=== PATIENT | male | born 1985 | race Two or more races ===

== ENCOUNTER 2023-04-03 13:52 | Inpatient (IN) | payer MEDICAID ==
[~2023-04-03] VITALS: Ht 172.7 cm; Wt 111.5 kg
[2023-04-03 15:17] LABS: Basophils # (auto) 0.1 10 ^3/uL (0-0.2); Basophils % (auto) 0.7 % (0.0-2.0); Eosinophils # (auto) 0.4 10 ^3/uL (0-0.8); Eosinophils % (auto) 5.2 % (0.0-7.0); Hematocrit 29.4 % (41.0-53.0); Hemoglobin 9.5 g/dL (13.5-17.5); Lymphocytes # (auto) 1.1 10 ^3/uL (0.4-5.4); Lymphocytes % (auto) 13.5 % (10.0-50.0); Mean Corpuscular Hemoglobin 29.6 pg (28.0-32.0); Mean Corpuscular Hgb Conc. 32.2 g/dL (32.0-36.0); Monocytes # (auto) 0.4 10 ^3/uL (0-1.3); Neutrophils # (auto) 5.9 10 ^3/uL (1.6-8.6); Neutrophils % (auto) 75.6 % (37.0-80.0); Nucleated Red Blood Cells % 0.1 %; Red Cell Distribution Width 15.9 % (11.8-14.3); White Blood Cell 7.8 10^3/uL (4.4-10.8)
[2023-04-03 15:34] LABS: Alanine Aminotransferase 19 U/L (7-40); Albumin 3.8 g/dL (3.2-4.8); Alkaline Phosphatase 98 U/L (46-116); Anion Gap 9 (5-15); Aspartate Aminotransferase 14 U/L (13-40); BUN/Creatinine Ratio 3.7 (10.0-20.0); Bilirubin, Total 0.3 mg/dL (0.2-1.0); Blood Urea Nitrogen 36 mg/dL (9-23); Calcium 9.3 mg/dL (8.5-10.1); Carbon Dioxide 29 mmol/L (20-30); Chloride 101 mmol/L (98-107); Glucose 77 mg/dL (74-106); Potassium 4.5 mmol/L (3.5-5.1); Sodium 139 mmol/L (136-145)
[2023-04-03 15:35] LABS: Total Protein 7.9 g/dL (5.7-8.2)
[2023-04-03 15:43] LABS: CRP High Sensitivity 13.77 mg/dL (<1.0)
[2023-04-03 16:29] LABS: Erythrocyte Sedimentation Rate 110 mm/hr (0-20)
[2023-04-03] MEDS ORDERED: FUROSEMIDE 40 MG/4 ML VIAL IV ONE (16:45)
[2023-04-03] MEDS ORDERED: VANCOMYCIN PER PHARMACY 0 MG IV SCH (17:45)
[2023-04-03] MEDS ORDERED: PIPERACILLIN-TAZOB 3.375GM 100 ML IV ONE (17:45)
[2023-04-03] MEDS ORDERED: VANCOMYCIN 1GM/200ML 200 ML IV ONE (19:00)
[2023-04-03] MEDS ORDERED: ACETAMINOPHEN 325 MG TAB PO PRN (19:15)
[2023-04-03] MEDS ORDERED: ONDANSETRON HCL 4 MG/2 ML VIAL IV PRN (19:15)
[2023-04-03] MEDS ORDERED: DOCUSATE SOD 100 MG CAP PO PRN (19:15)
[2023-04-03] MEDS ORDERED: MORPHINE SULFATE INJ 2 MG/ml SYRG IV PRN (19:15)
[2023-04-03] MEDS ORDERED: NITROGLYCERIN 0.4 MG SL TAB SL PRN (19:15)
[2023-04-03] MEDS ORDERED: CARV25TA55 PO (19:18)
[2023-04-03] MEDS ORDERED: CINA30TA14 PO (19:18)
[2023-04-03] MEDS ORDERED: SEVE800T20 PO (19:18)
[2023-04-03] MEDS ORDERED: NIFE1TAB30 PO (19:18)
[2023-04-03] MEDS: SEVELAMER 800 MG TAB PO SCH (21:23)
[2023-04-03] MEDS: cefTRIAXone 1GM/50ML D5W 50 ML IV SCH (21:23)
[2023-04-03] MEDS ORDERED: HEPARIN SODIUM (PORCINE) 5000 UNITS/ML 1ML VIAL SC SCH (22:00)
[2023-04-03] MEDS: NIFEdipine ER 30 MG TAB PO SCH (22:37)
[2023-04-03] MEDS: HEPARIN SODIUM (PORCINE) 5000 UNITS/ML 1ML VIAL SC SCH (22:38)
[2023-04-03] MEDS: CARVEDILOL 12.5 MG TAB PO SCH (22:40)
[2023-04-04 01:00] VITALS: PULSE 82; RESP 19; O2SAT 95
[2023-04-04] MEDS: FUROSEMIDE 20 MG/2 ML VIAL IV SCH ×2 (06:00→18:30)
[2023-04-04 06:24] LABS: Basophils # (auto) 0.1 10 ^3/uL (0-0.2); Basophils % (auto) 0.9 % (0.0-2.0); Eosinophils # (auto) 0.3 10 ^3/uL (0-0.8); Eosinophils % (auto) 3.7 % (0.0-7.0); Hematocrit 27.6 % (41.0-53.0); Lymphocytes # (auto) 0.8 10 ^3/uL (0.4-5.4); Lymphocytes % (auto) 10.6 % (10.0-50.0); Mean Corpuscular Hgb Conc. 32.5 g/dL (32.0-36.0); Mean Corpuscular Volume 92.3 fL (80.0-100.0); Monocytes # (auto) 0.5 10 ^3/uL (0-1.3); Monocytes % (auto) 6.1 % (0.0-12.0); Neutrophils % (auto) 78.7 % (37.0-80.0); Red Blood Cells 2.99 10^6/uL (4.5-5.90); Red Cell Distribution Width 16.1 % (11.8-14.3); White Blood Cell 7.6 10^3/uL (4.4-10.8)
[2023-04-04 06:32] LABS: Alanine Aminotransferase 15 U/L (7-40); Albumin 3.4 g/dL (3.2-4.8); Alkaline Phosphatase 83 U/L (46-116); Aspartate Aminotransferase < 8 U/L (13-40); Calcium 8.9 mg/dL (8.7-10.4); Carbon Dioxide 27 mmol/L (20-30); Chloride 100 mmol/L (98-107)
[2023-04-04 06:33] LABS: Anion Gap 12 (5-15); BUN/Creatinine Ratio 3.9 (10.0-20.0); Bilirubin, Total 0.2 mg/dL (0.2-1.0); Blood Urea Nitrogen 44 mg/dL (9-23); Glucose 77 mg/dL (74-106); Potassium 4.9 mmol/L (3.5-5.1); Sodium 139 mmol/L (136-145); Total Protein 7.4 g/dL (5.7-8.2)
[2023-04-04] MEDS ORDERED: SODIUM CHL 0.9% 1000 ML BAG XX ONE ×2 (07:00→15:45)
[2023-04-04] MEDS: SEVELAMER 800 MG TAB PO SCH ×3 (08:11→18:38)
[2023-04-04] MEDS: cefTRIAXone 1GM/50ML D5W 50 ML IV SCH (08:12)
[2023-04-04] MEDS: NIFEdipine ER 30 MG TAB PO SCH ×2 (09:52→22:10)
[2023-04-04] MEDS: CARVEDILOL 12.5 MG TAB PO SCH ×2 (09:53→22:11)
[2023-04-04] MEDS: HEPARIN SODIUM (PORCINE) 5000 UNITS/ML 1ML VIAL SC SCH ×2 (09:57→22:12)
[2023-04-04] MEDS ORDERED: ENOXAPARIN SOD 30 MG/0.3 ML SYRINGE SC SCH (10:00)
[2023-04-04] MEDS: CINACALCET HYDROCHLORIDE 30 MG TAB PO SCH (10:58)
[2023-04-04 14:27] LABS: Urine Epithelial Cast None Seen /hpf (<5)
[2023-04-04 14:51] LABS: Urine Bacteria NONE SEEN /hpf (None Seen); Urine Blood Negative /uL (Negative); Urine Clarity Clear (Clear); Urine Color Colorless (Yellow); Urine Protein, UAD 2+ (Negative); Urine Specific Gravity 1.009 (1.001-1.035); Urine Urobilinogen Normal (Negative); Urine WBC 2 /hpf (0 - 3); Urine pH 8.5 (5.0-8.0)
[2023-04-04 15:00] LABS: Amphetamine Screen, Urine Neg (NEGATIVE); Barbiturate Scree,Urine Neg (NEGATIVE); Benzodiazephine Screen, Urine Neg (NEGATIVE); Cocaine Screen, Urine Neg (NEGATIVE); Opiate Scree,Urine Neg (NEGATIVE)
[2023-04-04 15:01] LABS: Cannabinoid Screen, Urine Neg (NEGATIVE); Phencyclidine Screen, Urine Neg (NEGATIVE)
[2023-04-04] MEDS ORDERED: LIDOCAINE HCL 5 % TOP OINT 35 GM TOP ONE (15:30)
[2023-04-04 16:05] LABS: % Iron Saturation 8.9 % (20-55)
[2023-04-04] MEDS: VANCOMYCIN 1GM/200ML 200 ML IV ONE ×2 (18:29→18:32)
[2023-04-04 19:30] VITALS: PULSE 90; RESP 14; O2SAT 98
[2023-04-04] MEDS ORDERED: EPOETIN ALFA-EPBX 10,000 UNIT/1ML VIAL SC ONE (21:00)
[2023-04-04] MEDS ORDERED: FURO40TA4 PO (22:25)
[2023-04-04] MEDS ORDERED: LOSA50TA12 (22:25)
[2023-04-05] VITALS (7 sets, daily range): BP systolic 92–153; BP diastolic 59–90; PULSE 78–89; RESP 16–18; TEMP 97.6–98.6; O2SAT 92–94
[2023-04-05] MEDS: FUROSEMIDE 20 MG/2 ML VIAL IV SCH ×2 (06:00→18:00)
[2023-04-05] MEDS ORDERED: SODIUM CHL 0.9% 1000 ML BAG XX ONE (07:00)
[2023-04-05] MEDS: NIFEdipine ER 30 MG TAB PO SCH ×2 (08:37→22:00)
[2023-04-05] MEDS: SEVELAMER 800 MG TAB PO SCH ×3 (08:38→18:00)
[2023-04-05] MEDS: CARVEDILOL 12.5 MG TAB PO SCH ×2 (08:38→22:00)
[2023-04-05] MEDS: cefTRIAXone 1GM/50ML D5W 50 ML IV SCH (08:46)
[2023-04-05] MEDS: CINACALCET HYDROCHLORIDE 30 MG TAB PO SCH (08:51)
[2023-04-05] MEDS: HEPARIN SODIUM (PORCINE) 5000 UNITS/ML 1ML VIAL SC SCH (08:53)
[2023-04-06 05:00] VITALS: BP 140/85; PULSE 76; RESP 20; TEMP 97.9; O2SAT 94
[2023-04-06] MEDS: FUROSEMIDE 20 MG/2 ML VIAL IV SCH (06:00)
[2023-04-06 06:57] LABS: Hemoglobin 8.3 g/dL (13.5-17.5)
[2023-04-06 06:59] LABS: Hematocrit 25.6 % (41.0-53.0)
[2023-04-06] MEDS ORDERED: SODIUM CHL 0.9% 1000 ML BAG XX ONE (07:00)
[2023-04-06] MEDS: SEVELAMER 800 MG TAB PO SCH ×2 (07:43→11:32)
[2023-04-06 08:00] VITALS: PULSE 72; PULSE 76; RESP 17; O2SAT 94
[2023-04-06] MEDS: cefTRIAXone 1GM/50ML D5W 50 ML IV SCH (08:29)
[2023-04-06 09:00] VITALS: BP 117/67; PULSE 76; RESP 17; TEMP 97.6; O2SAT 94
[2023-04-06] MEDS ORDERED: CLIN-203 PO (09:16)
[2023-04-06] MEDS ORDERED: CEPH500C PO (09:16)
[2023-04-06] MEDS ORDERED: HYDR-4902 PO (09:16)
[2023-04-06 10:18] VITALS: BP 135/72; PULSE 80; RESP 17; TEMP 97.9; O2SAT 94
[2023-04-06] MEDS: NIFEdipine ER 30 MG TAB PO SCH (11:30)
[2023-04-06] MEDS: CINACALCET HYDROCHLORIDE 30 MG TAB PO SCH (11:33)
[2023-04-06] MEDS: CARVEDILOL 12.5 MG TAB PO SCH (11:35)
[2023-04-06 13:00] VITALS: BP 146/85; PULSE 79; RESP 17; TEMP 98.1; O2SAT 92
[2023-04-06] MEDS ORDERED: EPOETIN ALFA-EPBX 10,000 UNIT/1ML VIAL SC ONE (21:00)
== END 2023-04-06 14:20 | disposition home or self-care (01) | DRG 383 ==
LOC: ER 13:52 → TELE 19:09 → TELE-CENTR 04-04 21:38
PROVIDERS: ADMIT Nurse Practitioner Family; ATTEND Family Medicine
PROC: 5A1D70Z Performance of Urinary Filtration, Intermittent, Less than 6 Hours Per Day (ICD-10-PCS; principal; 2023-04-04)
PROC: 5A1D70Z Performance of Urinary Filtration, Intermittent, Less than 6 Hours Per Day (ICD-10-PCS; 2023-04-06)
DX: L03.116 Cellulitis of left lower limb (principal); N17.9 Acute kidney failure, unspecified; I12.0 Hypertensive chronic kidney disease with stage 5 chronic kidney disease or end stage renal disease; D63.8 Anemia in other chronic diseases classified elsewhere; E87.20 Acidosis, unspecified; N18.6 End stage renal disease; E66.01 Morbid (severe) obesity due to excess calories; E87.5 Hyperkalemia; R79.89 Other specified abnormal findings of blood chemistry; Z99.2 Dependence on renal dialysis; Z82.49 Family history of ischemic heart disease and other diseases of the circulatory system; Z68.37 Body mass index [BMI] 37.0-37.9, adult
CPT/HCPCS: 36415; 71046; 80053; 80202; 80307; 81001; 82728; 83540; 83550; 83605; 83880; 84484; 85014; 85018; 85025; 85652; 86141; 90935; 93306; 93971; 96365; 96375; G0378

== ENCOUNTER 2023-07-18 10:24 | Inpatient (IN) | payer MEDICAID ==
[~2023-07-18] VITALS: Ht 172.7 cm; Wt 97.9 kg
[~2023-07-18 10:24] MED LIST: CARV25TA55 PO; CEPH500C PO; CINA30TA14 PO; CLIN-203 PO; FURO40TA4 PO; HYDR-4902 PO; LOSA50TA12; NIFE1TAB30 PO; SEVE800T20 PO
[2023-07-18 10:58] LABS: Basophils # (auto) 0.1 10 ^3/uL (0-0.2); Eosinophils # (auto) 0.1 10 ^3/uL (0-0.8); Eosinophils % (auto) 1.1 % (0.0-7.0); Hemoglobin 7.6 g/dL (13.5-17.5); Lymphocytes # (auto) 1.3 10 ^3/uL (0.4-5.4); Lymphocytes % (auto) 15.5 % (10.0-50.0); Mean Corpuscular Volume 91.4 fL (80.0-100.0); Nucleated Red Blood Cells % 0.3 %; White Blood Cell 8.5 10^3/uL (4.4-10.8)
[2023-07-18 11:00] LABS: Basophils % (auto) 1.6 % (0.0-2.0); Mean Corpuscular Hemoglobin 29.2 pg (28.0-32.0); Mean Corpuscular Hgb Conc. 31.9 g/dL (32.0-36.0); Monocytes # (auto) 0.4 10 ^3/uL (0-1.3); Monocytes % (auto) 4.3 % (0.0-12.0); Neutrophils # (auto) 6.6 10 ^3/uL (1.6-8.6); Neutrophils % (auto) 77.5 % (37.0-80.0); Red Blood Cells 2.62 10^6/uL (4.5-5.90); Red Cell Distribution Width 19.1 % (11.8-14.3)
[2023-07-18 11:20] LABS: Alanine Aminotransferase 17 U/L (7-40); Albumin 3.8 g/dL (3.2-4.8); Alkaline Phosphatase 66 U/L (46-116); Anion Gap 16 (5-15); Aspartate Aminotransferase 18 U/L (13-40); BUN/Creatinine Ratio 7.5 (10.0-20.0); Calcium 9.5 mg/dL (8.5-10.1); Carbon Dioxide 23 mmol/L (20-30); Chloride 103 mmol/L (98-107); Glucose 113 mg/dL (74-106); Sodium 142 mmol/L (136-145)
[2023-07-18 11:21] LABS: Bilirubin, Total 0.3 mg/dL (0.2-1.0); Total Protein 5.9 g/dL (5.7-8.2)
[2023-07-18 11:35] LABS: Blood Urea Nitrogen 105 mg/dL (9-23); Potassium 6.2 mmol/L (3.5-5.1)
[2023-07-18 11:58] LABS: Magnesium 2.7 mg/dL (1.6-2.6)
[2023-07-18 12:09] LABS: INR 1.15 (0.9-1.15); Partial Thromboplastin Time 23.1 SEC (24.5-34.5); Prothrombin Time 12.1 sec (9.3-11.8)
[2023-07-18 15:27] VITALS: O2SAT 100
[2023-07-18] MEDS ORDERED: HYDROcodone-ACET 5/325MG TAB PO PRN (15:45)
[2023-07-18] MEDS ORDERED: ONDANSETRON HCL 4 MG/2 ML VIAL IV PRN (15:45)
[2023-07-18] MEDS ORDERED: NITROGLYCERIN 0.4 MG SL TAB SL PRN (15:45)
[2023-07-18] MEDS ORDERED: MORPHINE SULFATE INJ 2 MG/ml SYRG IV PRN ×2 (15:45)
[2023-07-18] MEDS ORDERED: DOCUSATE SOD 100 MG CAP PO PRN (15:45)
[2023-07-18] MEDS ORDERED: ACETAMINOPHEN 325 MG TAB PO PRN (15:45)
[2023-07-18] MEDS: SODIUM CHLORIDE 0.9% 1,000 ML IV ONE ×2 (15:47→15:55)
[2023-07-18] MEDS: SODIUM CHLORIDE 0.9% 500 ML IVB ONE (15:47)
[2023-07-18] MEDS: ONDANSETRON HCL 4 MG/2 ML VIAL IV ONE (15:55)
[2023-07-18] MEDS: METOCLOPRAMIDE HCL 5MG/ml INJ 2ml VIAL IV ONE (15:55)
[2023-07-18] MEDS: ALBUTEROL SULF 2.5 MG/0.5ML(0.5%) NEB SOLN NEB ONE (16:16)
[2023-07-18] MEDS: PANTOPRAZOLE 40 MG/10 ML VIAL INJ IV ONE (16:25)
[2023-07-18] MEDS: SODIUM BICARB 8.4% 50Meq/50ml SYR INJ IV ONE (16:26)
[2023-07-18] MEDS: InsuLIN REG 1unit/0.01ml Soln (100units/ml) IV ONE (16:29)
[2023-07-18] MEDS: DEXTROSE (50%) 50ML SYRG IV ONE (16:31)
[2023-07-18] MEDS: FUROSEMIDE 40 MG TAB PO SCH (18:26)
[2023-07-18] MEDS: SEVELAMER 800 MG TAB PO SCH (18:26)
[2023-07-18 19:30] VITALS: O2SAT 94
[2023-07-18 20:03] LABS: Basophils # (auto) 0.1 10 ^3/uL (0-0.2); Lymphocytes # (auto) 1.9 10 ^3/uL (0.4-5.4); Monocytes # (auto) 0.5 10 ^3/uL (0-1.3); Nucleated Red Blood Cells % 0.2 %; Red Cell Distribution Width 19.5 % (11.8-14.3)
[2023-07-18 20:04] LABS: Eosinophils # (auto) 0.1 10 ^3/uL (0-0.8); Eosinophils % (auto) 0.7 % (0.0-7.0); Hematocrit 21.5 % (41.0-53.0); Lymphocytes % (auto) 20.3 % (10.0-50.0); Mean Corpuscular Hemoglobin 29.2 pg (28.0-32.0); Mean Corpuscular Hgb Conc. 31.6 g/dL (32.0-36.0); Mean Corpuscular Volume 92.5 fL (80.0-100.0); Neutrophils # (auto) 6.7 10 ^3/uL (1.6-8.6); Red Blood Cells 2.32 10^6/uL (4.5-5.90); White Blood Cell 9.1 10^3/uL (4.4-10.8)
[2023-07-18 20:13] LABS: Hemoglobin 6.8 g/dL (13.5-17.5)
[2023-07-18] MEDS: EPOETIN ALFA-EPBX 10,000 UNIT/1ML VIAL SC ONE (21:00)
[2023-07-18] MEDS ORDERED: PANTOPRAZOLE 40 MG/10 ML VIAL INJ IV SCH (22:00)
[2023-07-18] MEDS: PANTOPRAZOLE 40mg/50ML NS AE 50 ML IV SCH (22:02)
[2023-07-18] MEDS: CARVEDILOL 12.5 MG TAB PO SCH (22:03)
[2023-07-18] MEDS: NIFEdipine ER 30 MG TAB PO SCH (22:03)
[2023-07-18 22:56] VITALS: PULSE 75; RESP 16; O2SAT 99
[2023-07-19] VITALS (14 sets, daily range): BP systolic 141–184; BP diastolic 80–109; PULSE 60–77; RESP 16–20; TEMP 97.6–98.7; O2SAT 94–99
[2023-07-19] MEDS ORDERED: LOSA-534 PO (00:18)
[2023-07-19 07:45] LABS: Basophils # (auto) 0.1 10 ^3/uL (0-0.2); Basophils % (auto) 0.7 % (0.0-2.0); Eosinophils # (auto) 0.3 10 ^3/uL (0-0.8); Hematocrit 20.9 % (41.0-53.0); Lymphocytes # (auto) 1.9 10 ^3/uL (0.4-5.4); Monocytes # (auto) 0.4 10 ^3/uL (0-1.3); Red Blood Cells 2.32 10^6/uL (4.5-5.90)
[2023-07-19 07:48] LABS: Eosinophils % (auto) 3.6 % (0.0-7.0); Lymphocytes % (auto) 23.8 % (10.0-50.0); Mean Corpuscular Hemoglobin 29.4 pg (28.0-32.0); Mean Corpuscular Hgb Conc. 32.7 g/dL (32.0-36.0); Monocytes % (auto) 5.4 % (0.0-12.0); Neutrophils # (auto) 5.2 10 ^3/uL (1.6-8.6); Neutrophils % (auto) 66.5 % (37.0-80.0); Nucleated Red Blood Cells % 0.1 %; Red Cell Distribution Width 17.9 % (11.8-14.3); White Blood Cell 7.8 10^3/uL (4.4-10.8)
[2023-07-19 07:52] LABS: Hemoglobin 6.8 g/dL (13.5-17.5)
[2023-07-19 08:09] LABS: Alanine Aminotransferase 13 U/L (7-40); Albumin 3.3 g/dL (3.2-4.8); Alkaline Phosphatase 56 U/L (46-116); Anion Gap 16 (5-15); Aspartate Aminotransferase 18 U/L (13-40); BUN/Creatinine Ratio 8.1 (10.0-20.0); Bilirubin, Total 0.3 mg/dL (0.2-1.0); Calcium 9.3 mg/dL (8.5-10.1); Carbon Dioxide 24 mmol/L (20-30); Chloride 100 mmol/L (98-107); Glucose 80 mg/dL (74-106); Potassium 5.3 mmol/L (3.5-5.1); Sodium 140 mmol/L (136-145); Total Protein 5.3 g/dL (5.7-8.2)
[2023-07-19 08:31] LABS: Blood Urea Nitrogen 133 mg/dL (9-23)
[2023-07-19 08:56] LABS: Magnesium 2.8 mg/dL (1.6-2.6)
[2023-07-19 08:57] LABS: CRP High Sensitivity 0.18 mg/dL (<1.0)
[2023-07-19] MEDS: SODIUM CHL 0.9% 1000 ML BAG XX ONE (09:13)
[2023-07-19 09:14] LABS: Thyroid Stimulating Hormone 1.95 uIU/mL (0.55-4.78)
[2023-07-19] MEDS: PANTOPRAZOLE 40 MG/10 ML VIAL INJ IV SCH (11:19)
[2023-07-19] MEDS: CINACALCET HYDROCHLORIDE 30 MG TAB PO SCH (11:21)
[2023-07-19 11:45] LABS: Folate (Folic Acid) 6.78 ng/mL (>5.38)
[2023-07-19 11:48] LABS: Ferritin 328.8 ng/mL (22-322)
[2023-07-19 14:03] LABS: % Iron Saturation 32.6 % (20-55)
[2023-07-19 14:24] LABS: Hemoglobin 8.2 g/dL (13.5-17.5)
[2023-07-19 14:26] LABS: Hematocrit 24.9 % (41.0-53.0)
[2023-07-19] MEDS: CYANOCOBALAMIN (B-12) 1000 MCG/1 ML VIAL IM ONE (17:05)
[2023-07-20] VITALS (8 sets, daily range): BP systolic 129–147; BP diastolic 75–81; PULSE 67–79; RESP 17–20; TEMP 97.9–98.4; O2SAT 95–100
[2023-07-20] MEDS ORDERED: SODIUM CHL 0.9% 1000 ML BAG XX ONE (07:00)
[2023-07-20 08:07] LABS: Basophils # (auto) 0.1 10 ^3/uL (0-0.2); Basophils % (auto) 1.1 % (0.0-2.0); Eosinophils # (auto) 0.4 10 ^3/uL (0-0.8); Hemoglobin 7.7 g/dL (13.5-17.5); Lymphocytes # (auto) 1.3 10 ^3/uL (0.4-5.4); Lymphocytes % (auto) 22.4 % (10.0-50.0); Mean Corpuscular Hemoglobin 29.8 pg (28.0-32.0); Monocytes # (auto) 0.3 10 ^3/uL (0-1.3); Monocytes % (auto) 4.5 % (0.0-12.0); Neutrophils # (auto) 3.9 10 ^3/uL (1.6-8.6); Nucleated Red Blood Cells % 0.1 %; Red Blood Cells 2.58 10^6/uL (4.5-5.90); Red Cell Distribution Width 18.7 % (11.8-14.3); White Blood Cell 5.9 10^3/uL (4.4-10.8)
[2023-07-20] MEDS ORDERED: LIDOCAINE VISCOUS 2% 15ML UD ONE ×2 (08:10→14:30)
[2023-07-20] MEDS ORDERED: fentaNYL CITRATE 100 MCG/2 ML VL ONE ×2 (08:10→14:28)
[2023-07-20] MEDS ORDERED: SODIUM CHLORIDE LOCK 10 ML ONE ×2 (08:10→14:28)
[2023-07-20] MEDS ORDERED: diphenhdrAMINE HCL 50 MG/1 ML VL ONE (08:10)
[2023-07-20] MEDS ORDERED: MIDAZOLAM HCL 5 MG/ML-1ML VIAL ONE (08:10)
[2023-07-20 08:19] LABS: Alanine Aminotransferase 17 U/L (7-40); Albumin 3.6 g/dL (3.2-4.8); Alkaline Phosphatase 60 U/L (46-116); Anion Gap 11 (5-15); Aspartate Aminotransferase 14 U/L (13-40); BUN/Creatinine Ratio 4.6 (10.0-20.0); CRP High Sensitivity 0.13 mg/dL (<1.0); Calcium 8.8 mg/dL (8.5-10.1); Carbon Dioxide 26 mmol/L (20-30); Chloride 103 mmol/L (98-107); Glucose 87 mg/dL (74-106); Magnesium 2.4 mg/dL (1.6-2.6); Potassium 4.3 mmol/L (3.5-5.1); Sodium 140 mmol/L (136-145)
[2023-07-20 08:20] LABS: Bilirubin, Total 0.4 mg/dL (0.2-1.0); Blood Urea Nitrogen 55 mg/dL (9-23); Total Protein 5.7 g/dL (5.7-8.2)
[2023-07-20] MEDS: CYANOCOBALAMIN 500 MCG TAB PO SCH (10:00)
[2023-07-20] MEDS ORDERED: MIDAZOLAM HCL 2MG/2ML 2ml VIAL (1mg/ml) ONE (14:28)
[2023-07-20] MEDS ORDERED: ONDANSETRON HCL 4 MG/2 ML VIAL ONE (14:28)
[2023-07-20] MEDS ORDERED: PROPOFOL 10 MG/ML 20 ML IV ONE (14:28)
[2023-07-20] MEDS ORDERED: METOCLOPRAMIDE HCL 5MG/ml INJ 2ml VIAL IV ONE (14:30)
[2023-07-20] MEDS ORDERED: KETAMINE 50mg/ML 1ml syringe ONE (14:30)
[2023-07-20] MEDS ORDERED: fentaNYL CITRATE 100 MCG/2 ML VL IV PRN (14:30)
[2023-07-20] MEDS ORDERED: MORPHINE SULFATE INJ 2 MG/ml SYRG IV PRN (14:30)
[2023-07-20] MEDS ORDERED: HYDROmorphone HCL 2 MG/ML VL/or syr IV PRN ×2 (14:30)
[2023-07-20] MEDS ORDERED: ERGO1CAP12 PO (17:16)
[2023-07-20] MEDS ORDERED: SUCR5CHW PO (17:20)
[2023-07-20] MEDS: SUCRALFATE 1 GM/10 ML ORAL SUSP PO SCH (18:08)
[2023-07-20] MEDS: EPOETIN ALFA-EPBX 4,000 UNIT/ML VIAL SC ONE (21:00)
[2023-07-20] MEDS: PANTOPRAZOLE 40 MG TAB PO SCH (21:36)
[2023-07-21 05:00] VITALS: BP 123/69; PULSE 71; RESP 20; TEMP 97.8; O2SAT 99
[2023-07-21 06:37] LABS: Basophils # (auto) 0.1 10 ^3/uL (0-0.2); Eosinophils # (auto) 0.3 10 ^3/uL (0-0.8); Hemoglobin 7.7 g/dL (13.5-17.5); Monocytes # (auto) 0.2 10 ^3/uL (0-1.3); Neutrophils # (auto) 3.1 10 ^3/uL (1.6-8.6)
[2023-07-21 06:40] LABS: Basophils % (auto) 1.3 % (0.0-2.0); Eosinophils % (auto) 6.6 % (0.0-7.0); Hematocrit 23.1 % (41.0-53.0); Lymphocytes # (auto) 0.9 10 ^3/uL (0.4-5.4); Lymphocytes % (auto) 20.1 % (10.0-50.0); Mean Corpuscular Hemoglobin 30.5 pg (28.0-32.0); Mean Corpuscular Hgb Conc. 33.2 g/dL (32.0-36.0); Mean Corpuscular Volume 91.9 fL (80.0-100.0); Monocytes % (auto) 4.6 % (0.0-12.0); Neutrophils % (auto) 67.4 % (37.0-80.0); Red Blood Cells 2.52 10^6/uL (4.5-5.90); Red Cell Distribution Width 18.5 % (11.8-14.3); White Blood Cell 4.6 10^3/uL (4.4-10.8)
[2023-07-21 06:45] LABS: Calcium 8.9 mg/dL (8.5-10.1); Chloride 102 mmol/L (98-107); Sodium 139 mmol/L (136-145)
[2023-07-21 06:46] LABS: Anion Gap 10 (5-15); Carbon Dioxide 27 mmol/L (20-30)
[2023-07-21 06:51] LABS: BUN/Creatinine Ratio 5.3 (10.0-20.0); Glucose 90 mg/dL (74-106)
[2023-07-21 07:23] LABS: Blood Urea Nitrogen 76 mg/dL (9-23)
[2023-07-21 07:25] LABS: Potassium 5.6 mmol/L (3.5-5.1)
[2023-07-21 08:00] VITALS: PULSE 61; O2SAT 95
[2023-07-21 08:12] VITALS: BP 147/77; PULSE 69; RESP 18; TEMP 97.6; O2SAT 95
[2023-07-21 11:32] VITALS: BP 152/83; PULSE 66; RESP 17; TEMP 98.3; O2SAT 93
[2023-07-21] MEDS ORDERED: PANT40T PO (11:32)
[2023-07-21] MEDS ORDERED: CYAN500T3 PO (11:32)
[2023-07-21] MEDS ORDERED: SUCR1SUS26 PO (11:32)
[2023-07-21 16:32] VITALS: BP 179/97; PULSE 68; RESP 17; TEMP 98.7; O2SAT 96
[2023-07-21 17:11] VITALS: BP 133/80
[2023-07-21] MEDS ORDERED: EPOETIN ALFA-EPBX 10,000 UNIT/1ML VIAL SC ONE (21:00)
== END 2023-07-21 17:35 | disposition home or self-care (01) | DRG 241 ==
LOC: ER 10:24 → TELE 15:42 → TELE-WESTW 22:55
PROVIDERS: ADMIT Internal Medicine; ATTEND Internal Medicine Pulmonary Disease
PROC: 5A1D70Z Performance of Urinary Filtration, Intermittent, Less than 6 Hours Per Day (ICD-10-PCS; 2023-07-19)
PROC: 30233N1 Transfusion of Nonautologous Red Blood Cells into Peripheral Vein, Percutaneous Approach (ICD-10-PCS; 2023-07-19)
PROC: 0DB68ZX Excision of Stomach, Via Natural or Artificial Opening Endoscopic, Diagnostic (ICD-10-PCS; 2023-07-20)
PROC: 0DB48ZX Excision of Esophagogastric Junction, Via Natural or Artificial Opening Endoscopic, Diagnostic (ICD-10-PCS; 2023-07-20)
PROC: 0DB98ZX Excision of Duodenum, Via Natural or Artificial Opening Endoscopic, Diagnostic (ICD-10-PCS; principal; 2023-07-20 14:42)
PROC: 5A1D70Z Performance of Urinary Filtration, Intermittent, Less than 6 Hours Per Day (ICD-10-PCS; 2023-07-21)
DX: K25.4 Chronic or unspecified gastric ulcer with hemorrhage (principal); I13.2 Hypertensive heart and chronic kidney disease with heart failure and with stage 5 chronic kidney disease, or end stage renal disease; K22.11 Ulcer of esophagus with bleeding; E87.20 Acidosis, unspecified; N17.9 Acute kidney failure, unspecified; N18.6 End stage renal disease; D63.8 Anemia in other chronic diseases classified elsewhere; K29.71 Gastritis, unspecified, with bleeding; D62 Acute posthemorrhagic anemia; K29.81 Duodenitis with bleeding; K44.9 Diaphragmatic hernia without obstruction or gangrene; I50.32 Chronic diastolic (congestive) heart failure; E87.5 Hyperkalemia; E87.6 Hypokalemia; E66.01 Morbid (severe) obesity due to excess calories; K57.90 Diverticulosis of intestine, part unspecified, without perforation or abscess without bleeding; E53.8 Deficiency of other specified B group vitamins; N25.81 Secondary hyperparathyroidism of renal origin; L03.116 Cellulitis of left lower limb; Z99.2 Dependence on renal dialysis; Q63.1 Lobulated, fused and horseshoe kidney; Z91.199 Patient's noncompliance with other medical treatment and regimen due to unspecified reason; Z82.49 Family history of ischemic heart disease and other diseases of the circulatory system; Z68.32 Body mass index [BMI] 32.0-32.9, adult; Z79.899 Other long term (current) drug therapy
CPT/HCPCS: 36415; 71045; 74176; 80048; 80053; 80061; 82150; 82270; 82306; 82607; 82728; 82746; 82962; 83036; 83540; 83550; 83615; 83690; 83735; 83880; 84132; 84443; 85014; 85018; 85025; 85045; 85610; 85730; 86141; 86850; 86900; 86901; 86920; 87340; 87493; 90935; 94640; 96361; 96374; 96375; C9113; G0378; J1815; J2250; J2405; J2704